=== PATIENT | female | born 1980 | race African-American/Black ===

== ENCOUNTER 2023-08-28 16:28 | Emergency (ER) | payer OTHER, SELFPAY ==
[2023-08-28 16:30] VITALS: BP 116/84
[2023-08-28 17:39] VITALS: BMI 31.4
[2023-08-28 17:43] LABS: % Basophils 0.5 % (0-2); % Eosinophils 3.5 % (0-6); % Immature Granulocytes 0.4 % (0-0.5); % Lymphocytes 23.8 % (20.5-51.1); % Monocytes 5.5 % (1.7-9.3); % Neutrophils 66.3 % (42.2-75.2); Absolute Eosinophils 0.3 10^3/uL (0-0.7); Absolute Lymphocytes 1.9 10^3/uL (1.2-3.4); Absolute Monocytes 0.4 10^3/uL (0.1-0.6); Absolute Neutrophils 5.2 10^3/uL (1.4-6.5); Hematocrit 32.5 % (37.0-47.0); Hemoglobin 11.2 g/dL (12.0-16.0); Mean Corp Hgb Conc. 34.5 g/dL (33.0-37.0); Mean Corpuscular Hgb 27.2 pg (27.0-31.0); Mean Corpuscular Volume 78.9 fL (81.0-99.0); Mean Platelet Volume 11.2 fL (7.4-10.4); Nucleated Red Blood Cells % 0 %; Platelet Count 237 10^3/uL (130-400); Red Blood Cell Count 4.12 10^6/uL (4.20-5.40); Red Cell Dist. Width 14.7 % (11.5-14.5); White Blood Cell Count 7.8 10^3/uL (4.8-10.8)
[2023-08-28 18:00] LABS: ALT (SGPT) 16 U/L (0-35); AST (SGOT) 21 U/L (14-36); Albumin 3.5 g/dl (3.5-5.0); Alkaline Phosphatase 70 U/L (38-126); Blood Urea Nitrogen 10 mg/dl (7-17); Calcium 9.1 mg/dl (8.4-10.2); Carbon Dioxide 29 mmol/L (22-30); Chloride 101 mmol/L (98-107); Estimated Creatinine Clearance 108 ml/min; Glucose 108 mg/dl (70-99); Potassium 3.1 mmol/L (3.5-5.1); Sodium 138 mmol/L (135-145); Total Bilirubin 0.3 mg/dl (0.2-1.3); Total Protein 6.5 g/dl (6.3-8.2); eGFR > 60.00
[2023-08-28] MEDS: KLOR-CON 40 MEQ PO (18:57)
[2023-08-28 20:08] VITALS: BP 120/82
[2023-08-28 20:09] LABS: Urine Albumin Negative (Neg - Trace); Urine Bilirubin Negative (Negative); Urine Character Clear (Clear); Urine Color Yellow; Urine Glucose Negative (Negative); Urine Ketone Negative (Negative); Urine Leukocyte Negative (Negative); Urine Nitrite Negative (Negative); Urine Occult Blood Negative (Negative); Urine Specific Gravity 1.005 (<1.030); Urine Urobilinogen Negative (Neg - 1+)
--- NOTE | 2023-08-28 20:52 | ED.GENMED ---
History of Present Illness
General
Chief Complaint: Fatigue
Source: patient
Exam Limitations: none
Time Seen by Provider: 08/28/23 16:48
Nursing documentation reviewed up to this point in time: agreed with
History of Present Illness
History of Present Illness:
Patient to ED with complaint of fatigue, headache, hand numbness x 2 days. Denies fever/chills. No prior historyo f same. Brought self to ED for eval.
Past History
Past History
ED Past Medical History: GERD, NIDDM and Other (Anemia, renal artery aneurysm)
ED Past Surgical History: Gynecological (Uterine artery embolization)
Social History
Tobacco: Non-smoker
Alcohol: None
Drug: None
Personal:
Living: with family
Employment: Employed
Family History
Family History: Negative Early CAD
Review of Systems
Review of Systems
Allergies reviewed?: Yes
All Other Systems: ROS reviewed and negative except as documented in HPI and ROS
Constitutional: Reports fatigue
EENT: Reports no symptoms
Respiratory: Reports no symptoms
Cardiac: Reports no symptoms
ABD/GI: Reports no symptoms
Musculoskeletal: Reports no symptoms
Skin: Reports no symptoms
Neurological: Reports weakness
Psychiatric: Reports no symptoms
Phy Exam
General Physical Exam
General Presentation: well appearing and no apparent distress
General age: appears stated age
General Skin: warm and dry
General Habitus: normal
Cardiovascular Exam
Cardiovascular Exam: regular rate/rhythm and no edema
Pulmonary Exam
Pulmonary Exam: lungs clear and no respiratory distress
Musculoskeletal Exam
Musculoskeletal Exam: full ROM and neuro vasc intact
Skin Exam
Skin Exam: normal color, warm/dry and no rash
Psychiatric Exam
Psychiatric Exam: normal mood/affect
Course
Orders/Labs/Results
Orders:
Orders
08/28/23 16:36
Electrocardiogram (*1) Urgent
Reason for Study: Chest Pain
EKG- Treatment ONCE
08/28/23 17:36
Complete Blood Count/With Diff Urgent
Comprehensive Metabolic Panel Urgent
Urinalysis Reflex To Culture Urgent
Date Specimen was Collected: 08/28/23
Time Specimen was Collected: 17:24
08/28/23 18:04
Potassium Chloride Powder [Klor-Con] 40 meq PO NOW STA
Abnormal Lab Results
08/28/23
17:36
RBC 4.12 L 10^6/uL
(4.20-5.40)
Hgb 11.2 L g/dL
(12.0-16.0)
Hct 32.5 L %
(37.0-47.0)
MCV 78.9 L fL
(81.0-99.0)
RDW 14.7 H %
(11.5-14.5)
MPV 11.2 H fL
(7.4-10.4)
Potassium 3.1 L mmol/L
(3.5-5.1)
Glucose 108 H mg/dl
(70-99)
08/28/23 17:36
08/28/23 17:36
Vital Signs
Initial and Last Documented VS:
Initial Vital Signs
Temp Pulse Resp BP Pulse Ox
98.3 F 98 18 116/84 98
08/28/23 16:30 08/28/23 16:30 08/28/23 16:30 08/28/23 16:30 08/28/23 16:30
Last Documented Vital Signs
Temp Pulse Resp BP Pulse Ox
98.3 F 89 17 120/82 98
08/28/23 16:30 08/28/23 20:08 08/28/23 20:08 08/28/23 20:08 08/28/23 20:08
*Critical Care Note
Total Time (30-74mins, 75-104mins- exclusive of procedures): Not Applicable
Update Note
Update Note:
K 3.1, Given 40meq KCL in dept. Will continue 20meq x 2 days, close follow up with PCP. Patient given instructions on s/s to return to ED and she is agreeable to plan.
ED Attending Note
-
Portions of this chart may have been created with voice recognition software.� Occasional wrong word or��sound alike� substitutions may have occurred due to the inherent limitations of voice recognition software.
Discharge Plan
Departure
Patient Disposition: Home (Routine Discharge)
Date of Disposition: 08/28/23
Time of Disposition: 20:11
Patient with high blood pressure during this ER visit?: No
Condition: Good
Covid-19: Not Applicable
Discharge Problem:
Hypokalemia
Instructions: Hypokalemia, Fatigue (DC)
Prescriptions:
New
potassium chloride 20 mEq packet
20 meq PO DAILY Qty: 2 0RF
No Action
Geodon:
10 mg PO DAILY
Metformin HCl
1,000 mg PO DAILY
ibuprofen 600 MG tablet
600 mg PO Q6HPRN PRN (Reason: pain) Qty: 20 0RF
potassium chloride [Klor-Con M20] 20 MEQ tablet,ER particles/crystals
20 meq PO BID Qty: 6 0RF
meclizine 25 mg tablet
25 mg PO TID PRN (Reason: dizziness) Qty: 10 0RF
Referrals:
UNKNOWN - PT DOES,NOT KNOW [Family Provider] -
Activity Restrictions/Additional Instructions:
Follow up with your family doctor.
Interventions
Interventions:
*Risk Screen - Suicide Last Done: 08/28/23 17:39
*General Assessment Last Done: 08/28/23 17:39
*Neglect/Abuse Screening Last Done: 08/28/23 17:39
ED- Fall Risk Assessment Last Done: 08/28/23 17:39
*Nursing Disposition Last Done: 08/28/23 20:20
Discharge Date and Time
Discharge Date/Time: 08/28/23 20:22
Print Language: HEBREW
== END 2023-08-28 20:22 | disposition home or self-care (01) ==
LOC: EMR 16:28
PROVIDERS: Nurse Practitioner; EMERGENCY PHYSICIAN Emergency Medicine
DX: E87.6 Hypokalemia (principal); R53.83 Other fatigue; R53.1 Weakness; R51.9 Headache, unspecified; M54.50 Low back pain, unspecified; R20.0 Anesthesia of skin; E11.9 Type 2 diabetes mellitus without complications; K21.9 Gastro-esophageal reflux disease without esophagitis; I72.2 Aneurysm of renal artery; D64.9 Anemia, unspecified; Z88.3 Allergy status to other anti-infective agents; Z88.5 Allergy status to narcotic agent
CPT/HCPCS: 99283; 80053; 81003; 85025; 93005